=== PATIENT | female | born 1935 | race Caucasian/White ===

== ENCOUNTER → 2018-10-06 | Emergency (ER) | payer MEDICARE, OTHER ==
[~2018-10-06] VITALS: Ht 162.6 cm; Wt 90.9 kg
[~2018-10-06] MED LIST: ACET325T33 PO; ALPR0.254 G-TUBE; ALPR0.5T6 PO; ASPI-817 PO; ATOR10TA65 PO; BISA10SU75 PR; CHOL100062 PO; CRAN450T7 PO; DENO60DI SQ; DIPH1TAB25 PO; FOLI-49 PO; LANS30CA GTB; LEVO25TA6 PO; LOSA1TAB22 PO; METO-429 PO; METO-448 PO; OMEP40CA6 PO; PRAV20TA2 PO; PSYL575P18 PO; QUET25TA33 PO; SACC250C NGT; TRAZ-149 PO; Vancomycin Hcl NGT
[2018-10-06 01:12] VITALS: Ht 162.6 cm; Wt 90.9 kg
--- NOTE | 2018-10-06 01:42 | ERD ---
ER Documentation Chief Complaint Chief Complaint ELIAS MATTHEWS,from [facility],brought in for anxiety HPI This is a 83-year-old female sent from a custodial center who is here with her daughter. The patient states that she woke up from sleep and says she felt like there was water in her chest. She cannot describe it any further. She denies any chest pain, no difficulty breathing no gasping for air, she just says she felt like there was some liquid in her chest. She says she has not been coughing or having any fever or other illness and feels back to normal now. The daughter states saturation of oxygen was there was 96% ROS All systems reviewed and are negative except as per history of present illness. Medications Home Meds Active Scripts Trazodone Hcl* (Desyrel*) 50 Mg Tab, 25 MG PO HS for 14 Days, TAB Prov:NASIR MERCER MD 12/05/15 Quetiapine Fumarate* (Quetiapine Fumarate*) 25 Mg Tablet, 25 MG PO BID for 30 Days, TAB Prov:NASIR MERCER MD 12/05/15 Metoprolol Tartrate* (Lopressor*) 50 Mg Tab, 50 MG PO BID for 30 Days, TAB Prov:NASIR MERCER MD 12/05/15 Levothyroxine Sodium* (Levothyroxine Sodium*) 25 Mcg Tablet, 25 MCG PO AC BREAKFAST for 30 Days, TAB Prov:NASIR MERCER MD 12/05/15 Aspirin* (Aspirin* EC) 81 Mg Tablet.dr, 81 MG PO DAILY for 28 Days Prov:NASIR MERCER MD 12/05/15 Acetaminophen* (Tylenol*) 325 Mg Tablet, 650 MG PO Q4H PRN for PAIN LEVEL 1-3 OR FEVER for 14 Days, #60 TAB Prov:NASIR MERCER MD 12/05/15 Reported Medications Denosumab (Prolia) 60 Mg/1 Ml Disp.syrin, 60 MG SQ 10/06/18 Cranberry Fruit (CRANBERRY) 450 Mg Tablet, 450 MG PO DAILY for 30 Days 10/06/18 Omeprazole* (Omeprazole*) 40 Mg Capsule.dr, 40 MG PO DAILY for 30 Days, #30 10/06/18 Cholecalciferol* (Vitamin D3*) 1,000 Unit Tablet, 1000 UNIT PO DAILY for 30 Days, #30 10/06/18 Losartan-Hydrochlorothiazide (Losartan-HCTZ) 50-12.5 Mg Tab, 1 TAB PO DAILY, TAB 10/06/18 Pravastatin Sodium (Pravastatin Sodium) 20 Mg Tablet, 20 MG PO QHS for 30 Days, #30 10/06/18 Alprazolam* (Alprazolam*) 0.5 Mg Tablet, 0.5 MG PO DAILY PRN for ANXIETY 10/06/18 Folic Acid* (Folic Acid*) 1 Mg Tablet, 1 MG PO DAILY for 30 Days, #30 10/06/18 Psyllium Husk (with Sugar) (Metamucil Powder) 575 Gm Powder, 575 GM PO PRN for CONSTIPATION 10/06/18 Discontinued Reported Medications Metoprolol Tartrate* (Lopressor*) 25 Mg Tab, 25 MG PO DAILY for 30 Days 10/06/18 Levothyroxine Sodium* (Levothyroxine Sodium*) 25 Mcg Tablet, 25 MCG PO BEFORE BREAKFAST, #30 TAB 10/06/18 Discontinued Scripts [Vancomycin Oral Syringe] 50 MG/ML SOLN No Conflict Check, 125 MG NGT QID for 10 Days Prov:NASIR MERCER MD 12/05/15 Saccharomyces Boulardii* (Florastor*) 250 Mg Cap, 500 MG NGT BID for 14 Days, CAP Prov:NASIR MERCER MD 12/05/15 Lansoprazole* (Lansoprazole*) 30 Mg Capsule.dr, 30 MG GTB DAILY@06 for 30 Days Prov:NASIR MERCER MD 12/05/15 Diphenoxylate Hcl-Atropine* (Diphenoxylate Hcl-Atropine*) 1 Tab Tablet, 1 TAB PO BID PRN for DIARRHEA for 7 Days, TAB Prov:NASIR MERCER MD 12/05/15 Bisacodyl* (Bisacodyl*) 10 Mg Supp, 10 MG MD DAILY PRN for CONSTIPATION for 60 Days, SUPP Prov:NASIR MERCER MD 12/05/15 Atorvastatin Calcium (Atorvastatin Calcium) 10 Mg Tablet, 10 MG PO HS for 30 Days, TAB Prov:NASIR MERCER MD 12/05/15 Alprazolam* (Alprazolam*) 0.25 Mg Tablet, 0.25 MG G-TUBE BID PRN for AGITATION for 14 Days, TAB Prov:NASIR MERCER MD 12/05/15 Allergies Allergies: Coded Allergies: Sulphated Oil (Unverified Allergy, Mild, RASHES LIGHTHEADNESS, 10/06/18) Sulfa (Sulfonamide Antibiotics) (Unverified Allergy, Unknown, 10/06/18) PMhx/Soc History of Surgery: No Anesthesia Reaction: No Hx Neurological Disorder: Yes (seizures / childhood) Hx Respiratory Disorders: No Hx Cardiac Disorders: Yes (HTN) Hx Psychiatric Problems: No Hx Miscellaneous Medical Probl: Yes Hx Alcohol Use: No Hx Substance Use: No Hx Tobacco Use: No FmHx Family History: No coronary disease Physical Exam Vitals Vital Signs Date Temp Pulse Resp B/P (MAP) Pulse Ox O2 O2 Flow FiO2 Time Delivery Rate 10/06/18 97.6 73 18 156/69 89 01:12 (98) Physical Exam Const: Well-developed, well-nourished Head: Atraumatic, normocephalic Eyes: Normal Conjunctiva, PERRLA, EOMI, normal sclera, no nystagmus ENT: Normal External Ears, Nose and Mouth, moist mucus membranes. Neck: Full range of motion. No meningismus, no lymphadenopathy. Resp: Clear to auscultation bilaterally, no wheezing, rhonchi, rales Cardio: Regular rate and rhythm, no murmurs, S1 S2 present Abd: Soft, non tender x 4, non distended. Normal bowel sounds, no guarding or rebound, no pulsitile abdominal masses or bruits Skin: No petechiae or rashes, no ecchymosis , no maculopapular rash Back: No midline or flank tenderness Ext: No cyanosis, or edema, FROM x 4, normal inspection, neurovascularly intact x 4 Neur: Awake and alert, STR 5/5 x 4, sensation intact x 4, no focal findings, cerebellum intact Psych: Normal Mood and Affect Result Diagram: 10/06/18 0214 10/06/18 0214 Results 24 hrs Laboratory Tests Test 10/06/18 02:14 White Blood Count 7.8 10^3/ul Red Blood Count 3.58 10^6/ul Hemoglobin 11.7 g/dl Hematocrit 35.9 % Mean Corpuscular Volume 100.3 fl Mean Corpuscular Hemoglobin 32.7 pg Mean Corpuscular Hemoglobin Concent 32.6 g/dl Red Cell Distribution Width 12.9 % Platelet Count 192 10^3/UL Mean Platelet Volume 10.9 fl Immature Granulocytes % 0.400 % Neutrophils % 66.1 % Lymphocytes % 25.6 % Monocytes % 5.8 % Eosinophils % 1.8 % Basophils % 0.3 % Nucleated Red Blood Cells % 0.0 /100WBC Immature Granulocytes # 0.030 10^3/ul Neutrophils # 5.1 10^3/ul Lymphocytes # 2.0 10^3/ul Monocytes # 0.5 10^3/ul Eosinophils # 0.1 10^3/ul Basophils # 0.0 10^3/ul Nucleated Red Blood Cells # 0.0 10^3/ul Sodium Level 137 mmol/L Potassium Level 4.3 mmol/L Chloride Level 100 mmol/L Carbon Dioxide Level 27 mmol/L Anion Gap 10 Blood Urea Nitrogen 42 mg/dl Creatinine 1.05 mg/dl Est Glomerular Filtrat Rate mL/min mL/min Glucose Level 101 mg/dl Calcium Level 10.0 mg/dl Troponin I < 0.012 ng/ml B-Type Natriuretic Peptide 78 PG/ML Procedures/MDM MR #: [id number] DOS: 10/06/18 0139 Ordering MD: ADRIANA TUBBS DO Location: E/R Room/Bed: PROCEDURE: Chest x-ray CLINICAL INDICATION: Chest pain. TECHNIQUE: VIEWS: 1 COMPARISON: CR CHEST 12/02/2015; CR CHEST 11/27/2015; CR CHEST 11/26/2015 FINDINGS: SUPPORT DEVICES: None CARDIAC AND MEDIASTINAL SILHOUETTES: Normal in size . There is thoracic ectasia with thoracic aortic atherosclerotic calcifications. LUNGS AND PLEURAL SPACE: Diminished lung volumes . Stable bilateral apical pleural thickening. Chronic elevation of the right diaphragm with adjacent compressive subsegmental atelectasis. Left retrocardiac scar discoid atelectasis. PNEUMOTHORAX: None. OSSEOUS STRUCTURES: Senescent osseous changes. IMPRESSION: 1. Left retrocardiac scar or discoid atelectasis. 2. Elevated right diaphragm with adjacent compressive subsegmental atelectasis. 3. Stable bilateral apical pleural thickening. 4. Aortic atherosclerosis. RPTAT: HRSR Giuliana Benavides Physician Date Time Electronically viewed and signed by Giuliana Benavides Physician on 10/06/2018 04:06 RR/ CC: ADRIANA TUBBS DO [id number] EKG: Rate/Rhythm: Normal sinus rhythm with a first-degree AV block lots of artifact QRS, ST, QT: NORMAL MD, QRS, QT] Impression: Abnormal EKG Blood work looks unremarkable. The patient feels normal now. I think the patient likely had a some type of mucus in her throat or possibly a bad dream. She is stable I discussed this with her daughter will discharge her home Departure Diagnosis: Primary Impression: Anxiety Additional Impression: Sleep disturbance Condition: Stable ADRIANA TUBBS DO Oct 06, 2018 01:42
[2018-10-06 04:30] VITALS: BP 144/80; PULSE 84; RESP 19
== END | disposition home or self-care (01) ==
LOC: E/R 00:51
DX: F41.9 Anxiety disorder, unspecified (principal); R05 Cough; I10 Essential (primary) hypertension; G47.9 Sleep disorder, unspecified
CPT/HCPCS: 36415; 71045; 80048; 83880; 84484; 85025; 93005